=== PATIENT | female | born 1980 | race Caucasian/White ===

== ENCOUNTER → 2024-01-17 15:30 | Outpatient (REF) | payer BC, SELFPAY | LOC: WDC 15:30 | PROVIDERS: ATTENDING PHYSICIAN Physician Assistant Medical | DX: Z12.31 Encounter for screening mammogram for malignant neoplasm of breast (principal) | CPT/HCPCS: 77063; 77067 ==

== ENCOUNTER → 2025-03-04 18:50 | Outpatient (REF) | payer BC, SELFPAY | LOC: WDC 18:50 | PROVIDERS: ATTENDING PHYSICIAN Nurse Practitioner Adult Health; FAMILY PHYSICIAN Physician Assistant Medical | DX: Z12.31 Encounter for screening mammogram for malignant neoplasm of breast (principal) | CPT/HCPCS: 77063; 77067 ==